=== PATIENT | female | born 1965 | race Caucasian/White ===

== ENCOUNTER → 2016-11-07 | Outpatient (CLI) | payer BC ==
--- NOTE | 2016-11-07 14:33 | MAMMOGRAPHY REPORT ---
BILATERAL DIGITAL SCREENING MAMMOGRAM TOMOSYNTHESIS WITH CAD: 11/07/2016 CLINICAL HISTORY: Routine screening. Patient has no complaints. TECHNIQUE: Breast tomosynthesis in addition to standard 2D mammography was performed. Current study was also evaluated with a Computer Aided Detection (CAD) system. COMPARISON: Comparison is made to exams dated: 11/05/2015 mammogram, 10/26/2013 mammogram, 11/01/2014 m ammogram, 10/20/2012 mammogram, 10/15/2011 mammogram, and 10/11/2010 mammogram - [facility]. BREAST COMPOSITION: The tissue of both breasts is heterogeneously dense, which may obscure small ma sses. FINDINGS: No suspicious masses, calcifications, or areas of architectural distortion are noted in e ither breast. There has been no significant interval change compared to prior exams. IMPRESSION: ACR BI-RADS CATEGORY 1: NEGATIVE There is no mammographic evidence of malignancy. A 1 year screening mammogram is recommended. The p atient will receive written notification of the results. Approximately 10% of breast cancers are not detected with mammography. A negative mammographic repor t should not delay biopsy if a clinically suggestive mass is present. Fidelina Thornton M.D. ah/:11/07/2016 14:01:36 College Admissions Counselor: Quirino GODFREY(R)(M), [facility] letter sent: Normal 1/2 BI-RADS Code: ACR BI-RADS Category 1: Negative
== END | disposition home or self-care (01) ==
LOC: C.MAMM 09:03
PROVIDERS: ATTEND Obstetrics & Gynecology
DX: Z12.31 Encounter for screening mammogram for malignant neoplasm of breast (principal)

== ENCOUNTER → 2017-11-10 | Outpatient (CLI) | payer OTHER ==
--- NOTE | 2017-11-10 14:59 | MAMMOGRAPHY REPORT ---
BILATERAL DIGITAL SCREENING MAMMOGRAM TOMOSYNTHESIS WITH CAD: 11/10/2017 CLINICAL HISTORY: Routine screening. Patient has no complaints. TECHNIQUE: Breast tomosynthesis in addition to standard 2D mammography was performed. Current study was also evaluated with a Computer Aided Detection (CAD) system. COMPARISON: Comparison is made to exams dated: 11/07/2016 mammogram, 11/05/2015 mammogram, 11/01/2014 m ammogram, 10/26/2013 mammogram, 10/20/2012 mammogram, and 10/15/2011 mammogram - [facility]. BREAST COMPOSITION: The tissue of both breasts is heterogeneously dense, which may obscure small mas ses. FINDINGS: No suspicious masses, calcifications, or areas of architectural distortion are noted in ei ther breast. There has been no significant interval change compared to prior exams. IMPRESSION: ACR BI-RADS CATEGORY 1: NEGATIVE There is no mammographic evidence of malignancy. A 1 year screening mammogram is recommended. The pa tient will receive written notification of the results. Approximately 10% of breast cancers are not detected with mammography. A negative mammographic report should not delay biopsy if a clinically suggestive mass is present. Fidelina Thornton M.D. /:11/10/2017 10:13:02 Inspection And Testing Supervisor: Prudence GODFREY([place])([facility]), [facility] letter sent: Normal 1/2 BI-RADS Code: ACR BI-RADS Category 1: Negative
== END | disposition home or self-care (01) ==
LOC: C.MAMM 08:59
PROVIDERS: ATTEND Physician Assistant
DX: Z12.31 Encounter for screening mammogram for malignant neoplasm of breast (principal)

== ENCOUNTER 2017-12-22 20:19 | Emergency (ER) | payer OTHER ==
[~2017-12-22] VITALS: Ht 157.5 cm; Wt 60.2 kg
[2017-12-22 20:42] VITALS: TEMP 36.8; Ht 157.5 cm; Wt 60.2 kg
[2017-12-22] MEDS ORDERED: COEN1CAP17 PO (21:44)
[2017-12-22] MEDS ORDERED: CLR10 PO (21:44)
[2017-12-22] MEDS ORDERED: OMEG10007 PO (21:44)
[2017-12-22] MEDS ORDERED: FIBE1CHW PO (21:44)
[2017-12-22] MEDS ORDERED: REDCAP2 PO (21:44)
[2017-12-22] MEDS ORDERED: CALC1CHW32 PO (21:44)
[2017-12-22] MEDS ORDERED: PROB1TAB16 PO (21:44)
--- NOTE | 2017-12-22 21:51 | EMERGENCY ROOM VISIT NOTE ---
History Report prepared by Michelle: Dharmesh Lambert Under the Supervision of: Dr. Adrianne Jamil D.O. First contact with patient: 21:19 Chief Complaint: ABDOMINAL PAIN Stated Complaint: STOMACH PAINS Nursing Triage Summary: Patient ambulatory to triage with an upright and steady gait, states "I have stomach pain, epigastric, that started around 1630 this evening. It subsided a little. I ate dinner. The pain got really bad around 1915." History of Present Illness The patient is a 52 year old female who presents to the Emergency Room with complaints of waxing and waning abdominal pain starting around 1600 this afternoon which is improved with hunching over. The patient states that she had a bottle of hard cider and hummus chips, and then 30 minutes later she started to have central abdominal pain which worsened around 1900 after having dinner. The patient states that the pain does not radiate into her back, it does not really move anywhere, and she does not feel bloated or distended. She denies any nausea, vomiting, fevers, chills, diarrhea, bloody stools, black stools, urinary symptoms, recent change in activity, recent travel, recent medication changes, any sick contacts, and any change in her eating other than an apple today. The patient has a history of IBS and diverticulosis, and she states that she has no history of diabetes, hypertension, abdominal surgery, and any blood thinner use. The patient has a family history of colon cancer, and she had a colonoscopy a year ago. She additionally notes that she had a dull ache on the right side of her abdomen for the past week which was a possible muscle strain, though she states that this improved until today. The patient reports that she still has her appendix and her gall bladder. Source of History: patient Onset: 1600 Position: abdomen Timing: waxes/wanes Modifying Factors (Worsening): other (hunching over) Associated Symptoms: No fevers, No chills, No nausea, No vomiting, No diarrhea, No urinary symptoms Review of Systems See HPI for pertinent positives & negatives. A total of 10 systems reviewed and were otherwise negative. Past Medical & Surgical Medical Problems: (1) Cardiac Murmurs Nec (2) Menstrual Disorder Nos (3) Urin Tract Infection Nos Family History No significant family history Social History Smoking Status: Never Smoker Alcohol Use: occasionally Marital Status: Housing Status: lives with significant other Current/Historical Medications Scheduled Calcium Phosphate-Cholecalcife (Caltrate Gummy Bites), 2 TABS PO DAILY Coenzyme Q10 (Ubidecarenone) (Co Q 10), 100 MG PO DAILY Dicyclomine Hcl (Bentyl), 20 MG PO TID Fiber (Fiber Select Gummies), 1 TAB PO DAILY Fish Oil ([place]-3), 1 CAP PO DAILY Loratadine (Claritin), 10 MG PO DAILY Probiotic Product (Probiotic), 1 TAB PO DAILY Red Yeast Rice Extract (Red Yeast Rice), 600 MG PO DAILY Allergies Coded Allergies: Terbinafine (Verified Allergy, Intermediate, Hives, 12/22/17) Physical Exam Vital Signs Date Time Temp Pulse Resp B/P (MAP) Pulse Ox O2 Delivery O2 Flow Rate FiO2 12/23/17 00:23 89 18 148/96 98 12/22/17 23:59 89 18 148/96 98 Room Air 12/22/17 21:55 87 18 147/98 98 Room Air 12/22/17 20:42 36.8 89 20 152/97 98 Room Air Physical Exam GENERAL: alert, well appearing, well nourished, no distress, non-toxic EYE EXAM: normal conjunctiva, PERRL and EOM's grossly intact OROPHARYNX: no exudate, no erythema, lips, buccal mucosa, and tongue normal and mucous membranes are moist NECK: supple, no nuchal rigidity, no adenopathy, non-tender LUNGS: Clear to auscultation. Normal chest wall mechanics HEART: no murmurs, S1 normal and S2 normal ABDOMEN: abdomen soft, central abdominal tenderness and right lower quadrant tenderness, normo-active bowel sounds, no masses, no rebound or guarding. BACK: Back is symmetrical on inspection and there is no deformity, no midline tenderness, no CVA tenderness. SKIN: no rashes and no bruising UPPER EXTREMITIES: upper extremities are grossly normal. LOWER EXTREMITIES: No pitting edema. NEURO EXAM: Normal sensorium, cranial nerves II-XII grossly intact, normal speech, no gross weakness of arms, no gross weakness of legs. Medical Decision & Procedures ER Provider Diagnostic Interpretation: Radiology results have been interpreted by the radiologist and reviewed by me. ABDOMEN AND PELVIS CT WITH IV CONTRAST CT DOSE: 260.83 mGy.cm HISTORY: Acute right lower quadrant abdominal pain abd pain, rlq tenderness TECHNIQUE: Multiaxial CT images of the abdomen and pelvis were performed following the use of intravenous contrast. A dose lowering technique was utilized adhering to the principles of ALARA. COMPARISON STUDY: None. FINDINGS: Linear subsegmental consolidative opacities of the right middle lobe and inferior segment lingula suggest atelectasis or scarring. There is no pneumatosis or pneumoperitoneum. The imaged inferior cardiac chambers are unremarkable. Trace pericardial effusion. Coronary arterial calcifications are noted. Mildly contracted gallbladder. Liver, spleen, pancreas and adrenal glands are within normal limits. Kidneys, ureters and bladder are unremarkable. Uterus and adnexa are unremarkable. Mild mixed plaquing of the aorta without aneurysm. No bulky adenopathy. Small sliding-type hiatal hernia. No small bowel obstruction. Normal appendix is seen on image 295 series 3. Mobile cecum is noted within the left lower quadrant of the abdomen. Mild colonic diverticulosis without CT evidence of acute diverticulitis. Moderate stool volume suggests constipation. Fecal debris is also noted within the terminal ileum. Soft tissues are unremarkable. Bones appear intact. Transitional lumbosacral anatomy with lumbarization of the S1 segment. Rudimentary disc space is seen at S1-S2. IMPRESSION: 1. No acute intra-abdominal or intrapelvic abnormality identified . Normal appendix. 2. No bowel obstruction or focal bowel wall thickening. 3. Suggested constipation. 4. Transitional lumbosacral anatomy with lumbarization of the S1 segment. 5. Colonic diverticulosis without CT evidence of acute diverticulitis. Electronically signed by: Tyorn Boogie M.D. 12/22/2017 10:40 PM Dictated Date/Time: 12/22/2017 10:33 PM Laboratory Results 12/22/17 21:20 Red Blood Count 4.00, Mean Corpuscular Volume 92.8, Mean Corpuscular Hemoglobin 31.5, Mean Corpuscular Hemoglobin Concent 34.0, Mean Platelet Volume 9.2, Neutrophils (%) (Auto) 51.9, Lymphocytes (%) (Auto) 36.3, Monocytes (%) (Auto) 8.8, Eosinophils (%) (Auto) 2.5, Basophils (%) (Auto) 0.3, Neutrophils # (Auto) 3.26, Lymphocytes # (Auto) 2.28, Monocytes # (Auto) 0.55, Eosinophils # (Auto) 0.16, Basophils # (Auto) 0.02 12/22/17 21:20 Test 12/22/17 21:20 White Blood Count 6.28 K/uL (4.8-10.8) Red Blood Count 4.00 M/uL (4.2-5.4) Hemoglobin 12.6 g/dL (12.0-16.0) Hematocrit 37.1 % (37-47) Mean Corpuscular Volume 92.8 fL (80-100) Mean Corpuscular Hemoglobin 31.5 pg (25-34) Mean Corpuscular Hemoglobin Concent 34.0 g/dl (32-36) Platelet Count 265 K/uL (130-400) Mean Platelet Volume 9.2 fL (7.4-10.4) Neutrophils (%) (Auto) 51.9 % Lymphocytes (%) (Auto) 36.3 % Monocytes (%) (Auto) 8.8 % Eosinophils (%) (Auto) 2.5 % Basophils (%) (Auto) 0.3 % Neutrophils # (Auto) 3.26 K/uL (1.4-6.5) Lymphocytes # (Auto) 2.28 K/uL (1.2-3.4) Monocytes # (Auto) 0.55 K/uL (0.11-0.59) Eosinophils # (Auto) 0.16 K/uL (0-0.5) Basophils # (Auto) 0.02 K/uL (0-0.2) RDW Standard Deviation 42.9 fL (36.4-46.3) RDW Coefficient of Variation 12.5 % (11.5-14.5) Immature Granulocyte % (Auto) 0.2 % Immature Granulocyte # (Auto) 0.01 K/uL (0.00-0.02) Urine Color YELLOW Urine Appearance CLEAR (CLEAR) Urine pH 6.5 (4.5-7.5) Urine Specific [place] 1.011 (1.000-1.030) Urine Protein NEG (NEG) Urine Glucose (UA) NEG (NEG) Urine Ketones NEG (NEG) Urine Occult Blood NEG (NEG) Urine Nitrite NEG (NEG) Urine Bilirubin NEG (NEG) Urine Urobilinogen NEG (NEG) Urine Leukocyte Esterase NEG (NEG) Anion Gap 5.0 mmol/L (3-11) Est Creatinine Clear Calc Drug Dose 60.5 ml/min Estimated GFR () 82.4 Estimated GFR (Non- 71.1 BUN/Creatinine Ratio 22.8 (10-20) Calcium Level 8.7 mg/dl (8.5-10.1) Total Bilirubin 0.3 mg/dl (0.2-1) Aspartate Amino Transf (AST/SGOT) 15 U/L (15-37) Alanine Aminotransferase (ALT/SGPT) 22 U/L (12-78) Alkaline Phosphatase 59 U/L (45-117) Troponin I < 0.015 ng/ml (0-0.045) Total Protein 7.5 gm/dl (6.4-8.2) Albumin 4.2 gm/dl (3.4-5.0) Globulin 3.3 gm/dl (2.5-4.0) Albumin/Globulin Ratio 1.3 (0.9-2) Lipase 167 U/L (73-393) Laboratory results per my review. Medications Administered Medications (Trade) Dose Ordered Sig/Brenda Route Start Time Stop Time Status Last Admin Dose Admin Dicyclomine HCl (Bentyl Tab) 20 mg NOW STAT PO 12/22/17 23:36 12/22/17 23:37 DC 12/22/17 23:58 20 MG ED Course 9: The patient was evaluated in room B5. A complete history and physical exam was performed. 1: Upon reevaluation, the patient is feeling better, though her pain is now lower and all the way across her abdomen. I discussed the findings and the treatment plan with the patient. She verbalizes agreement and understanding. She was discharged home. Medical Decision Differential diagnosis: Etiologies such as appendicitis, diverticulitis, PUD, biliary pathology, UTI, pancreatitis, obstruction, mesenteric ischemia, aortic pathology, infections, inflammatory bowel disease, renal colic, as well as others were entertained. Discussed with patient possible differential diagnosis of her pain. Discussed with her all results including labs and imaging. No evidence of acute appendicitis, acute cholecystitis, colitis, bowel obstruction, ureterolithiasis , or acute vascular pathology noted. I do not suspect bacteremia/sepsis. Patient's history not consistent with GI bleed. Discussed with her possible viral syndrome, food borne illness, biliary colic. Discussed symptoms to watch and return for, diet and hydration, she verbalized understanding was agreeable with plan. Patient hemodynamically stable throughout. Patient not immunocompromised and no other significant past medical history. Patient well- appearing here was able to tolerate p.o. and felt her pain was improved by time of discharge. Medication Reconcilliation Current Medication List: was personally reviewed by me Blood Pressure Screening Patient's blood pressure: Elevated blood pressure Blood pressure disposition: Elevated BP felt to be situational Impression Primary Impression: Abdominal pain Scribe Attestation The scribe's documentation has been prepared under my direction and personally reviewed by me in its entirety. I confirm that the note above accurately reflects all work, treatment, procedures, and medical decision making performed by me. Departure Information Dispostion Home / Self-Care Prescriptions Dicyclomine Hcl (BENTYL) 10 Mg Cap 20 MG PO TID for Pain, #20 CAP Prov: Adrianne Jamil, 12/23/17 Referrals Isaías Stokes M.D. (PCP) Forms Call Back Authorization, HOME CARE DOCUMENTATION FORM, IMPORTANT VISIT INFORMATION Patient Instructions My [facility] Additional Instructions Please eat a light and bland diet until you are feeling better. Please drink plenty of clear liquids to stay well-hydrated. Please continue your regular medications as prescribed. If you have any worsening pain, develop vomiting, diarrhea, noticed black or bloody stools, develop fevers or chills, dizziness, difficulty urinating, you have any other new concerns, please return the emergency room. Problem Qualifiers Primary Impression: Abdominal pain Abdominal location: unspecified location Qualified Codes: R10.9 - Unspecified abdominal pain
[2017-12-22 21:57] LABS: BASO % 0.3 %; BASO ABS # 0.02 K/uL (0-0.2); EOS % 2.5 %; EOS ABS # 0.16 K/uL (0-0.5); HEMATOCRIT 37.1 % (37-47); HEMOGLOBIN 12.6 g/dL (12.0-16.0); IG# 0.01 K/uL (0.00-0.02); LYMPH % 36.3 %; LYMPH ABS # 2.28 K/uL (1.2-3.4); MEAN CELL VOLUME 92.8 fL (80-100); MEAN CORPUSCULAR HEMOGLOBIN 31.5 pg (25-34); MEAN PLATELET VOLUME 9.2 fL (7.4-10.4); MONO % 8.8 %; MONO ABS # 0.55 K/uL (0.11-0.59); NEUT % 51.9 %; NEUT ABS # 3.26 K/uL (1.4-6.5); PLATELET COUNT 265 K/uL (130-400); RED CELL DISTRIBUTION WIDTH CV 12.5 % (11.5-14.5); RED CELL DISTRIBUTION WIDTH SD 42.9 fL (36.4-46.3); WHITE BLOOD COUNT 6.28 K/uL (4.8-10.8)
[2017-12-22 22:01] LABS: ALBUMIN 4.2 gm/dl (3.4-5.0); ALT/SGPT 22 U/L (12-78); AST/SGOT 15 U/L (15-37); BLOOD UREA NITROGEN 21 mg/dl (7-18); CALCIUM 8.7 mg/dl (8.5-10.1); CARBON DIOXIDE 30 mmol/L (21-32); CREATININE 0.92 mg/dl (0.60-1.20); GLUCOSE 94 mg/dl (70-99); LIPASE 167 U/L (73-393); POTASSIUM 4.1 mmol/L (3.5-5.1); SODIUM 140 mmol/L (136-145)
[2017-12-22 22:06] LABS: ALKALINE PHOSPHATASE 59 U/L (45-117); TOTAL PROTEIN 7.5 gm/dl (6.4-8.2)
[2017-12-22] MEDS ORDERED: OPTIRAY 320 IV PRN (22:30)
--- NOTE | 2017-12-22 22:42 | DIAGNOSTIC IMAGING REPORT ---
ABDOMEN AND PELVIS CT WITH IV CONTRAST CT DOSE: 260.83 mGy.cm HISTORY: Acute right lower quadrant abdominal pain abd pain, rlq tenderness TECHNIQUE: Multiaxial CT images of the abdomen and pelvis were performed following the use of intravenous contrast. A dose lowering technique was utilized adhering to the principles of ALARA. COMPARISON STUDY: None. FINDINGS: Linear subsegmental consolidative opacities of the right middle lobe and inferior segment lingula suggest atelectasis or scarring. There is no pneumatosis or pneumoperitoneum. The imaged inferior cardiac chambers are unremarkable. Trace pericardial effusion. Coronary arterial calcifications are noted. Mildly contracted gallbladder. Liver, spleen, pancreas and adrenal glands are within normal limits. Kidneys, ureters and bladder are unremarkable. Uterus and adnexa are unremarkable. Mild mixed plaquing of the aorta without aneurysm. No bulky adenopathy. Small sliding-type hiatal hernia. No small bowel obstruction. Normal appendix is seen on image 295 series 3. Mobile cecum is noted within the left lower quadrant of the abdomen. Mild colonic diverticulosis without CT evidence of acute diverticulitis. Moderate stool volume suggests constipation. Fecal debris is also noted within the terminal ileum. Soft tissues are unremarkable. Bones appear intact. Transitional lumbosacral anatomy with lumbarization of the S1 segment. Rudimentary disc space is seen at S1-S2. IMPRESSION: 1. No acute intra-abdominal or intrapelvic abnormality identified . Normal appendix. 2. No bowel obstruction or focal bowel wall thickening. 3. Suggested constipation. 4. Transitional lumbosacral anatomy with lumbarization of the S1 segment. 5. Colonic diverticulosis without CT evidence of acute diverticulitis. Electronically signed by: Tyron Boogie M.D. 12/22/2017 10:40 PM Dictated Date/Time: 12/22/2017 10:33 PM
[2017-12-22] MEDS ORDERED: DICYCLOMINE HCL 20 MG TAB PO STA (23:36)
[2017-12-23] MEDS ORDERED: DICY10CA55 PO (00:12)
[2017-12-23 00:23] VITALS: BP 148/96; PULSE 89; O2SAT 98
== END 2017-12-23 00:25 | disposition home or self-care (01) ==
LOC: C.EDB 20:20
DX: R10.30 Lower abdominal pain, unspecified (principal); R10.815 Periumbilic abdominal tenderness; Z87.42 Personal history of other diseases of the female genital tract; Z86.79 Personal history of other diseases of the circulatory system; Z88.8 Allergy status to other drugs, medicaments and biological substances